=== PATIENT | female | born 2000 | race Caucasian/White ===

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

== ENCOUNTER 2018-07-12 08:07 | Emergency (ER) | payer MEDICAID ==
[2018-07-12] MEDS: IPRATROPIUM (NEB) 0.5 MG/2.5 ML AMP NEB (08:31)
[2018-07-12] MEDS: ALBUTEROL 0.083% (NEB) 2.5 MG/3 ML AMP NEB (08:31)
[2018-07-12] MEDS: DEXAMETHASONE 10 MG/ML 1 ML INJ IV (08:31)
[2018-07-12] MEDS: SOD CHLORIDE 0.9% 1,000 ML IV (08:31)
[2018-07-12] MEDS: IPRATROPIUM (NEB) 0.5 MG/2.5 ML AMP HHN (10:20)
[2018-07-12] MEDS: ALBUTEROL 0.083% (NEB) 2.5 MG/3 ML AMP HHN (10:20)
== END 2018-07-12 11:21 | disposition home or self-care (01) ==
LOC: FTE 08:07
DX: J45.901 Unspecified asthma with (acute) exacerbation (principal); R05 Cough
CPT/HCPCS: 94644; 94645; 96374; 99285-25

== ENCOUNTER 2018-07-25 18:41 | Emergency (ER) | payer MEDICAID ==
[2018-07-25] MEDS: IPRATROPIUM (NEB) 0.5 MG/2.5 ML AMP INH (21:47)
[2018-07-25] MEDS: ALBUTEROL 0.5% (NEB) 2.5 MG/0.5 ML AMP INH (21:47)
[2018-07-25] MEDS: METHYLPREDNISOLONE 125 MG INJ IV (21:47)
[2018-07-25] MEDS: ONDANSETRON 4 MG INJ IV (21:47)
[2018-07-25] MEDS: SOD CHLORIDE 0.9% 1,000 ML IV (21:47)
[2018-07-25] MEDS: MAGNESIUM SULFATE 2 GM/50 ML 50 ML IVPB (22:00)
[2018-07-25 22:10] LABS: URINE BLOOD (Dip) POC Negative (NEGATIVE); URINE KETONES (Dip) POC Trace (NEGATIVE); URINE LEUKOCYTE EST (Dip) POC Negative (NEGATIVE); URINE NITRITE (Dip) POC Negative (NEGATIVE); URINE TOTAL PROTEIN POC Trace (NEGATIVE)
== END 2018-07-26 01:05 | disposition home or self-care (01) ==
LOC: FTE 07-26 01:05
DX: J45.41 Moderate persistent asthma with (acute) exacerbation (principal)
CPT/HCPCS: 81003; 81025; 94644; 96374; 96375; 99284-25

== ENCOUNTER 2018-09-15 12:34 | Emergency (ER) | payer SELFPAY, MEDICAID ==
[2018-09-15] MEDS: IPRATROPIUM (NEB) 0.5 MG/2.5 ML AMP HHN (13:06)
[2018-09-15] MEDS: ALBUTEROL 0.083% (NEB) 2.5 MG/3 ML AMP HHN (13:07)
[2018-09-15] MEDS ORDERED: LEVALBUTEROL (NEB) 1.25 MG/0.5 ML AMP HHN (13:30)
[2018-09-15] MEDS: METHYLPRED. NA SUCC 250 MG in DEXTROSE 5% 50 ML IV (13:45)
[2018-09-15] MEDS: LEVALBUTEROL (NEB) 1.25 MG/0.5 ML AMP HHN (13:49)
== END 2018-09-15 16:25 | disposition home or self-care (01) ==
LOC: FTE 12:34
DX: J45.901 Unspecified asthma with (acute) exacerbation (principal)
CPT/HCPCS: 94644; 94664; 96374; 99284-25

== ENCOUNTER 2018-10-06 10:10 | Emergency (ER) | payer SELFPAY ==
[2018-10-06] MEDS: METHYLPREDNISOLONE 125 MG INJ IM (10:57)
[2018-10-06] MEDS: IPRATROPIUM (NEB) 0.5 MG/2.5 ML AMP INH (11:12)
[2018-10-06] MEDS: ALBUTEROL 0.5% (NEB) 2.5 MG/0.5 ML AMP INH (11:12)
== END 2018-10-06 13:03 | disposition home or self-care (01) ==
LOC: FTE 10:10
DX: J45.901 Unspecified asthma with (acute) exacerbation (principal)
CPT/HCPCS: 94644; 96372; 99284-25

== ENCOUNTER 2018-10-18 15:58 | Emergency (ER) | payer SELFPAY ==
[2018-10-18] MEDS: METHYLPREDNISOLONE 125 MG INJ IV (17:56)
[2018-10-18] MEDS: SOD CHLORIDE 0.9% 1,000 ML IV (17:57)
[2018-10-18] MEDS: ALBUTEROL 0.5% (NEB) 2.5 MG/0.5 ML AMP INH (17:57)
[2018-10-18] MEDS: predniSONE 20 MG TAB PO (19:08)
== END 2018-10-18 19:27 | disposition home or self-care (01) ==
LOC: FTE 15:58
DX: J45.901 Unspecified asthma with (acute) exacerbation (principal)
CPT/HCPCS: 71045; 94644; 96374; 99284-25

== ENCOUNTER 2019-01-14 09:13 | Inpatient (IN) | payer SELFPAY ==
[2019-01-14] MEDS: SOD CHLORIDE 0.9% 1,000 ML IV (09:25)
[2019-01-14] MEDS: METHYLPREDNISOLONE 125 MG INJ IV (09:25)
[2019-01-14] MEDS: ALBUTEROL 0.5% (NEB) 2.5 MG/0.5 ML AMP INH (09:32)
[2019-01-14] MEDS: IPRATROPIUM (NEB) 0.5 MG/2.5 ML AMP INH (09:32)
[2019-01-14] MEDS: MAGNESIUM SULFATE 2 GM/50 ML 50 ML IVPB (09:49)
[2019-01-14 09:52] LABS: ADD MAN DIFF? NO
[2019-01-14 09:54] LABS: WHITE BLOOD COUNT 15.9 10^3/ul (4.8-10.8)
[2019-01-14 09:54] LABS: BASOPHIL # 0.1 10^3/ul (0.0-0.1); BASOPHILS % 0.4 % (0.0-2.0); EOSINOPHILS # 0.3 10^3/ul (0.0-0.5); EOSINOPHILS % 1.7 % (0.0-7.0); HEMATOCRIT 39.3 % (37.0-47.0); HEMOGLOBIN 12.6 g/dl (12.0-16.0); LYMPHOCYTES # 2.5 10^3/ul (0.8-2.9); LYMPHOCYTES % 15.4 % (15.0-51.0); MEAN CORPUSCULAR HEMOGLOBIN 25.4 pg (29.0-33.0); MEAN CORPUSCULAR HGB CONC 32.1 g/dl (32.0-37.0); MEAN CORPUSCULAR VOLUME 79.1 fl (82.0-101.0); MEAN PLATELET VOLUME 8.6 fl (7.4-10.4); MONOCYTES % 6.4 % (0.0-11.0); NEUTROPHILS % 75.5 % (39.0-77.0); PLATELET COUNT 344 10^3/UL (140-415); RED BLOOD COUNT 4.97 10^6/ul (4.20-5.40); RED CELL DISTRIBUTION WIDTH 15.4 % (11.5-14.5)
[2019-01-14 10:14] LABS: ALANINE AMINOTRANSFERASE 17 IU/L (13-69); ALBUMIN 4.8 g/dl (3.3-4.9); ALKALINE PHOSPHATASE 82 IU/L (42-121); ANION GAP 15 (5-13); ASPARTATE AMINO TRANSFERASE 21 IU/L (15-46); BILIRUBIN,INDIRECT 0.3 mg/dl (0-1.1); BILIRUBIN,TOTAL 0.3 mg/dl (0.2-1.3); BLOOD UREA NITROGEN 8 mg/dl (7-20); CALCIUM 9.4 mg/dl (8.4-10.2); CARBON DIOXIDE 23 mmol/L (21-31); CHLORIDE 105 mmol/L (97-110); CREATININE 0.61 mg/dl (0.44-1.00); Estimated GFR > 60 mL/min (>60); GLUCOSE 119 mg/dl (70-220); LIPASE 58 U/L (23-300); POTASSIUM 3.7 mmol/L (3.5-5.1); SODIUM 143 mmol/L (135-144)
[2019-01-14 10:25] LABS: TROPONIN-I < 0.012 ng/ml (0.000-0.120)
[2019-01-14 12:03] LABS: ADD UMIC YES; UR ASCORBIC ACID NEGATIVE (NEGATIVE); UR BACTERIA FEW /HPF (NONE SEEN); UR BILIRUBIN (Dip) NEGATIVE (NEGATIVE); UR BLOOD (Dip) NEGATIVE (NEGATIVE); UR CLARITY CLOUDY (CLEAR); UR COLOR YELLOW (YELLOW); UR GLUCOSE (Dip) NEGATIVE (NEGATIVE); UR KETONES (Dip) 2+ mg/dL (NEGATIVE); UR LEUKOCYTE ESTERASE (Dip) TRACE Leu/ul (NEGATIVE); UR MUCUS MANY /HPF (NONE SEEN); UR NITRITE (Dip) NEGATIVE (NEGATIVE); UR RBC 6 /HPF (0-5); UR SQUAMOUS EPITHELIAL CELL MODERATE /HPF (FEW); UR TOTAL PROTEIN (Dip) 1+ mg/dl (NEGATIVE); UR UROBILINOGEN (Dip) NEGATIVE (NEGATIVE); UR WBC 10 /HPF (0-5)
[2019-01-14] MEDS: CEFTRIAXONE 1 GM/50 ML (PMX) 50 ML IVPB (13:02)
[2019-01-14] MEDS ORDERED: ONDANSETRON 4 MG INJ IV (15:30)
[2019-01-14] MEDS: ALBUTEROL 0.083% (NEB) 2.5 MG/3 ML AMP HHN ×3 (15:30→19:49)
[2019-01-14] MEDS: ACETAMINOPHEN 325 MG TAB PO (22:05)
[2019-01-15] MEDS: ALBUTEROL 0.083% (NEB) 2.5 MG/3 ML AMP HHN ×4 (00:20→13:02)
[2019-01-15 07:24] LABS: ADD MAN DIFF? NO
[2019-01-15 07:31] LABS: WHITE BLOOD COUNT 10.6 10^3/ul (4.8-10.8)
[2019-01-15 07:31] LABS: BASOPHILS % 0.4 % (0.0-2.0); EOSINOPHILS % 0.4 % (0.0-7.0); HEMATOCRIT 38.7 % (37.0-47.0); HEMOGLOBIN 12.3 g/dl (12.0-16.0); LYMPHOCYTES # 2.2 10^3/ul (0.8-2.9); LYMPHOCYTES % 20.6 % (15.0-51.0); MEAN CORPUSCULAR HGB CONC 31.8 g/dl (32.0-37.0); MEAN CORPUSCULAR VOLUME 78.7 fl (82.0-101.0); MEAN PLATELET VOLUME 9.1 fl (7.4-10.4); MONOCYTES % 9.2 % (0.0-11.0); NEUTROPHIL # 7.3 10^3/ul (1.6-7.5); NEUTROPHILS % 68.8 % (39.0-77.0); PLATELET COUNT 351 10^3/UL (140-415); RED BLOOD COUNT 4.92 10^6/ul (4.20-5.40); RED CELL DISTRIBUTION WIDTH 15.9 % (11.5-14.5)
[2019-01-15 07:41] LABS: HEMOGLOBIN A1C 5.3 % (0-5.9)
[2019-01-15 08:21] LABS: ANION GAP 14 (5-13); BLOOD UREA NITROGEN 11 mg/dl (7-20); CALCIUM 9.2 mg/dl (8.4-10.2); CARBON DIOXIDE 22 mmol/L (21-31); CHLORIDE 107 mmol/L (97-110); CREATININE 0.56 mg/dl (0.44-1.00); Estimated GFR > 60 mL/min (>60); GLUCOSE 92 mg/dl (70-220); MAGNESIUM 2.5 mg/dl (1.7-2.5); POTASSIUM 4.1 mmol/L (3.5-5.1); SODIUM 143 mmol/L (135-144)
[2019-01-15] MEDS: METHYLPREDNISOLONE 125 MG INJ IV (14:00)
== END 2019-01-15 14:55 | disposition home or self-care (01) | DRG 203 ==
LOC: E/R 09:13 → 2NE 11:09
DX: J45.901 Unspecified asthma with (acute) exacerbation (principal); D72.829 Elevated white blood cell count, unspecified; J06.9 Acute upper respiratory infection, unspecified
CPT/HCPCS: 36415; 71045; 80048; 80053; 81001; 81025; 83036; 83690; 83735; 84484; 84703; 85025; 87400; 93005; 94640; 94644; 94664; 96374; 96375; 99285-25